=== PATIENT | male | born 1960 | race Caucasian/White ===

== ENCOUNTER 2017-03-03 08:25 | Day surgery (SDC) | payer OTHER ==
[~2017-03-03] VITALS: Ht 175.3 cm; Wt 83.0 kg
[~2017-03-03 08:25] MED LIST: 0.9% Sodium Chloride 1,000 ML IV SCH; LEFL20TA18 PO; MELO-253 PO; Sodium Chloride LOK Flush 10 mL Syringe IV PRN; fentaNYL-PF 50 mCg/mL 2 mL Inj IVPUSH PRN
[2017-03-03 08:47] VITALS: BP 150/99; PULSE 70; RESP 12; O2SAT 96
[2017-03-03] MEDS ORDERED: 0.9% Sodium Chloride 1,000 ML IV ONE (09:54)
[2017-03-03 10:10] VITALS: BP 142/87; PULSE 56; O2SAT 95
[2017-03-03 10:18] VITALS: BP 144/91; PULSE 55; O2SAT 96
--- NOTE | 2017-03-03 10:23 | ENDO ---
[address] [address] ENDOSCOPY PROCEDURE PATIENT: SHANTELL FLETCHER : 1960 MR#: [id number] ADMIT: 03/03/2017 JOB ID: [id number] DATE OF SURGERY: 03/03/2017 PRIMARY PROVIDER: Nahum Arriola MD PROCEDURE: Colonoscopy. INDICATIONS: A 57-year-old male who reports for colon cancer screening. EQUIPMENT: PCF H 180 AL. SEDATION: 1. Versed 4 mg. 2. Fentanyl 100 mcg. COMPLICATIONS: None identified. BOWEL PREPARATION: Fair, adequate exam. PROCEDURE IN DETAIL: After the risks and benefits were explained, written and verbal informed consent was obtained. The patient was brought into the endoscopy suite and placed in the left lateral decubitus position. Sedation was achieved as above. A digital rectal examination was accomplished. No significant pathology appreciated. The scope was introduced into the rectum and advanced to the cecum as identified by the appendiceal orifice and ileocecal valve. The scope was slowly withdrawn to carefully examine the mucosa for any defects or lesions. Multiple direct views were made through the dentate line for exclusion of pathology. The colon was decompressed. The scope removed from the patient who tolerated the procedure well. FINDINGS: In the sigmoid colon, there was an approximately 6-7 mm sessile polyp removed with hot snare. No other significant pathology was appreciated throughout. ENDOSCOPIC DIAGNOSIS: Colon polyp x1. RECOMMENDATIONS: 1. Await histopathology. 2. Repeat colonoscopy five years.
[2017-03-03 10:25] VITALS: BP 144/91; PULSE 54; O2SAT 99
--- NOTE | 2017-03-05 12:09 | PATH ---
SURGICAL PATHOLOGY Attending Physician:Marsha Alves CASE STATUS: Signed Out PATIENT NAME: SHANTELL FLETCHER PID: [id number] : 1960 DATE COLLECTED:03/03/2017 15:35 SPECIMEN: Colon, Polyp CLINICAL HISTORY: 1). 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 ICD10 D12.6 GROSS DESCRIPTION: The specimen is received in one formalin filled container labeled with the patient's name, sublabeled "sigmoid polyp" and consists of 2 portions of tissue which aggregate to 0.3 x 0.3 x 0.2 CM. The specimen is entirely submitted in one cassette. 03/03/2017DC MICRO DESCRIPTION: See diagnosis. ICD-9 CODES: CPT CODES: 1: 26588 Electronically Signed Out Gary El MD [facility] Pathology [facility] [address], [place] [address] Technical component performed at [facility], [facility] [address], [address]
== END 2017-03-03 23:59 | disposition home or self-care (01) ==
LOC: END 08:25 → MERGE 08:25 → END 23:59
PROVIDERS: ATTEND Internal Medicine Gastroenterology
DX: Z12.11 Encounter for screening for malignant neoplasm of colon (principal); D12.5 Benign neoplasm of sigmoid colon; M35.3 Polymyalgia rheumatica
CPT/HCPCS: 45385; G0500; J2250; J3010; J7030